=== PATIENT | female | born 1985 | race African-American/Black ===

== ENCOUNTER 2016-07-06 02:07 | Emergency (ER) | payer MEDICAID ==
[~2016-07-06] VITALS: Ht 162.6 cm; Wt 47.6 kg
[2016-07-06 02:10] VITALS: BP_SYST 111
[2016-07-06] MEDS ORDERED: LORazepam 1 MG TABLET PO ONE (02:45)
[2016-07-06 02:55] VITALS: BP_SYST 112
== END 2016-07-06 02:55 | disposition home or self-care (01) ==
LOC: SED 02:07
DX: F41.9 Anxiety disorder, unspecified (principal)
CPT/HCPCS: 93005; 99283

== ENCOUNTER 2017-01-10 22:05 | Emergency (ER) | payer MEDICAID ==
[~2017-01-10] VITALS: Ht 162.6 cm; Wt 47.6 kg
[2017-01-10 22:24] VITALS: BP_SYST 100
[2017-01-10] MEDS ORDERED: LORazepam 1 MG TABLET PO ONE (23:30)
[2017-01-11] MEDS ORDERED: PROPOFOL DRIP 100 ML IV ONE (03:20)
== END 2017-01-10 23:49 | disposition home or self-care (01) ==
LOC: SED 22:05
DX: F41.9 Anxiety disorder, unspecified (principal)
CPT/HCPCS: 93005; 99284; J2704